=== PATIENT | female | born 1965 | race Two or more races ===

== ENCOUNTER 2022-10-12 16:52 | Emergency (ER) | payer OTHER ==
[~2022-10-12] VITALS: Ht 152.4 cm; Wt 60.3 kg
[2022-10-12] MEDS ORDERED: LEVOTHYROXINE25 MCG PO (17:21)
== END 2022-10-12 21:17 | disposition home or self-care (01) ==
LOC: ER 16:52
DX: S00.01XA Abrasion of scalp, initial encounter (principal); W22.8XXA Striking against or struck by other objects, initial encounter; Y93.89 Activity, other specified; Y92.89 Other specified places as the place of occurrence of the external cause